=== PATIENT | male | born 2000 | race Hispanic/Latino ===

== ENCOUNTER 2023-01-30 20:27 | Emergency (ER) | payer OTHER ==
[~2023-01-30] VITALS: Ht 175.3 cm; Wt 79.4 kg
[2023-01-30 20:29] VITALS: BP 169/89; PULSE 129; RESP 20
== END 2023-01-30 23:32 ==
LOC: EDH 20:27
DX: S02.2XXA Fracture of nasal bones, initial encounter for closed fracture (principal); Y04.0XXA Assault by unarmed brawl or fight, initial encounter; Y93.89 Activity, other specified; Y92.89 Other specified places as the place of occurrence of the external cause; Y99.8 Other external cause status
CPT/HCPCS: 70486